=== PATIENT | female | born 1965 | race African-American/Black ===

== ENCOUNTER 2017-01-17 23:44 | Emergency (ER) | payer BC ==
[2017-01-17 23:53] VITALS: BP 131/87; PULSE 86; TEMP 98.6; BMI 29.2
[2017-01-18] MEDS ORDERED: IBUPROFEN 400 MG TABLET (FP) PO ONE ×2 (00:09)
--- NOTE | 2017-01-18 00:11 | PDOC ---
History of Present Illness - General Chief Complaint: Pain, Acute Stated Complaint: RIGHT EAR PAIN INTO THROAT Time Seen by Provider: 01/18/17 00:08 History Source: Patient - History of Present Illness Timing/Duration: 4-6 hours, 24 hours Severity: moderate Modifying Factors: worse with: medication Associated Symptoms: denies: cough, fever/chills, headaches Past History - Past Medical History Allergies/Adverse Reactions: Allergies Allergy/AdvReac Type Severity Reaction Status Date / Time No Known Allergies Allergy Verified 01/17/17 23:46 Home Medications: Ambulatory Orders Azithromycin 250 mg PO DAILY #6 tablet 01/18/17 Diabetes: No Other medical history: DENIES - Psycho/Social/Smoking Cessation Hx Anxiety: No Suicidal Ideation: No Smoking History: Never smoked Have you smoked in the past 12 months: No Information on smoking cessation initiated: No Hx Alcohol Use: No Drug/Substance Use Hx: No Substance Use Type: None Review of Systems - Review of Systems All Other Systems: Reviewed and Negative *Physical Exam - Vital Signs Last Vital Signs Temp Pulse Resp BP Pulse Ox 98.6 F 86 16 131/87 98 01/17/17 23:48 01/17/17 23:48 01/17/17 23:48 01/17/17 23:48 01/17/17 23:48 - Physical Exam Comments: 01/18/17 05:52 GENERAL: [The patient is awake, alert, and fully oriented, and in no apparent distress.] HEAD: [Normal with no signs of trauma.] EYES: [Pupils equal, round and reactive to light, extraocular movements intact, sclera anicteric, conjunctiva are normal.] ENT: [TMs normal, nares patent, oropharynx clear without exudates. Moist mucous membranes.] NECK: [Normal range of motion, supple without lymphadenopathy, JVD, or masses.] LUNGS: [Breath sounds equal, clear to auscultation bilaterally. No wheezes, and no crackles.] HEART: [Regular rate and rhythm, normal S1 and S2 without murmur, rub or gallop.] ABDOMEN: [Soft, nontender, normoactive bowel sounds. No guarding, no rebound. No masses appreciated.] EXTREMITIES: [Normal range of motion, no edema. No clubbing or cyanosis. No cords, erythema, or tenderness.] NEUROLOGICAL: [Cranial nerves II through XII grossly intact. Normal speech, normal gait.] PSYCH: [Normal mood, normal affect.] SKIN: [Warm, Dry, normal turgor, no rashes or lesions noted.] Medical Decision Making - Medical Decision Making 01/18/17 05:53 no bacterial infection apparent on PE nsaids abx to pharamcy in case infection develops over the next few days *DC/Admit/Observation/Transfer Diagnosis at time of Disposition: Throat pain - Discharge Dispostion Disposition: HOME Condition at time of disposition: Stable - Prescriptions Prescriptions: Azithromycin 250 mg PO DAILY #6 tablet - Patient Instructions Printed Discharge Instructions: DI for Viral Pharyngitis
== END 2017-01-18 00:11 | disposition home or self-care (01) ==
LOC: FER 23:44
DX: J02.9 Acute pharyngitis, unspecified (principal)
CPT/HCPCS: 99281-25